=== PATIENT | male | born 1990 | race Caucasian/White ===

== ENCOUNTER 2022-12-04 15:31 | Inpatient (IN) | payer MEDICAID ==
[~2022-12-04] VITALS: Ht 167.6 cm; Wt 77.1 kg
[~2022-12-04 15:31] MED LIST: HYDR-4354 PO
[2022-12-04] MEDS ORDERED: KETOROLAC TROMETHAMINE 15 MG INJ IVP ONE (16:00)
[2022-12-04] MEDS ORDERED: IV NORMAL SALINE 1000 ML BAG IV ONE (16:00)
[2022-12-04] MEDS ORDERED: KETOROLAC TROMETHAMINE 30 MG INJ ONE (16:07)
[2022-12-04 16:16] LABS: BASOPHILS % (AUTO) 0.3 % (0.0-2.0); EOSINOPHILS # (AUTO) 0.2 K/uL (0.0-0.7); EOSINOPHILS % (AUTO) 1.2 % (0.0-7.0); HEMATOCRIT 45.3 % (36.7-47.1); HEMOGLOBIN 15.6 g/dL (12.5-16.3); LYMPHOCYTES # (AUTO) 1.5 K/uL (0.8-4.8); LYMPHOCYTES % (AUTO) 10.6 % (20.5-51.5); MEAN CORPUSCULAR HEMOGLOBIN 29.8 uug (23.8-33.4); MEAN CORPUSCULAR HGB CONC 34 g/dL (32.5-36.3); MEAN CORPUSCULAR VOLUME 86.6 fL (73.0-96.2); MONOCYTES # (AUTO) 0.9 K/uL (0.1-1.30); MONOCYTES % (AUTO) 6.3 % (0.0-11.0); NEUTROPHILS # (AUTO) 11.6 K/uL (1.8-8.9); NEUTROPHILS % (AUTO) 81.6 % (38.5-71.5); PLATELET COUNT (AUTO) 165 K/uL (152-348); RED BLOOD CELL COUNT(AUTO) 5.23 MIL/uL (4.06-5.63); RED CELL DISTRIBUTION WIDTH 13.4 % (12.1-16.2); WHITE BLOOD COUNT (AUTO) 14.2 K/uL (3.6-10.2)
[2022-12-04 16:17] LABS: DIFFERENTIAL COMMENT 1
[2022-12-04 16:31] LABS: *BILIRUBIN,URIN NEGATIVE (NEGATIVE); *BLOOD, URINE NEGATIVE (NEGATIVE); *CLARITY,URINE CLEAR (CLEAR); *COLOR,URINE YELLOW (YELLOW); *KETONES,URINE NEGATIVE (NEGATIVE); *PROTEIN,URINE NEGATIVE (NEGATIVE); *UROBILINOGEN,URINE 0.2 E.U./dl (NORMAL); LEUKOCYTE ESTERASE ,URINE NEGATIVE (NEGATIVE); NITRITE, URINE NEGATIVE (NEGATIVE); PH,URINE 8.5 (5.0-8.0); UGLUCOSE NEGATIVE (NEGATIVE)
[2022-12-04 16:39] LABS: ALBUMIN 3.4 g/dL (3.4-5.0); BILIRUBIN,DIRECT 0.1 mg/dL (0.0-0.2); BILIRUBIN,TOTAL 0.3 mg/dL (0.2-1.0); CALCIUM 8.4 mg/dL (8.5-10.1); POTASSIUM 3.4 mmol/L (3.5-5.1); TOTAL PROTEIN, SERUM 6.5 g/dL (6.4-8.2)
[2022-12-04] MEDS ORDERED: PIPERACILLIN/TAZOBACTAM/D5W 50 ML IV ONE (17:23)
[2022-12-04] MEDS ORDERED: PIPERACILLIN SODIUM/TAZOBACTAM 3.375 G in IV DEXTROSE 5% 50 ML IV ONE (17:30)
[2022-12-04] MEDS ORDERED: ONDANSETRON 4 MG/2 ML VIAL IV PRN (19:15)
[2022-12-04] MEDS ORDERED: MORPHINE SULFATE 2 MG/1 ML DISP.SYRIN IV PRN (19:15)
[2022-12-04 20:00] VITALS: BP 142/58; TEMP 98.1; O2SAT 96
[2022-12-04] MEDS: ACETAMINOPHEN 325 MG TABLET PO PRN (21:52)
[2022-12-04] MEDS: IV D5 1/2 NS 1000 ML 1,000 ML IV PRN (22:04)
[2022-12-05] VITALS: BP 114/55; TEMP 98.3; O2SAT 97
[2022-12-05] MEDS ORDERED: PIPERACILLIN SODIUM/TAZOBACTAM 3.375 G in IV DEXTROSE 5% 50 ML IV SCH ×2
[2022-12-05] MEDS ORDERED: PIPERACILLIN/TAZOBACTAM/D5W 50 ML IV ONE ×2 (01:27→04:47)
[2022-12-05] MEDS: PIPERACILLIN SODIUM/TAZOBACTAM 3.375 G in IV DEXTROSE 5% 50 ML IV SCH ×2 (01:35→06:19)
[2022-12-05 04:00] VITALS: BP 105/56; TEMP 98; O2SAT 98
[2022-12-05 07:02] LABS: BASOPHILS # (AUTO) 0.1 K/UL (0.0-0.2); BASOPHILS % (AUTO) 0.6 % (0.0-2.0); EOSINOPHILS # (AUTO) 0.2 K/uL (0.0-0.7); EOSINOPHILS % (AUTO) 2.4 % (0.0-7.0); HEMATOCRIT 42.8 % (36.7-47.1); LYMPHOCYTES # (AUTO) 1.9 K/uL (0.8-4.8); LYMPHOCYTES % (AUTO) 21.5 % (20.5-51.5); MEAN CORPUSCULAR HEMOGLOBIN 30.5 uug (23.8-33.4); MEAN CORPUSCULAR HGB CONC 35 g/dL (32.5-36.3); MONOCYTES # (AUTO) 0.7 K/uL (0.1-1.30); MONOCYTES % (AUTO) 8.4 % (0.0-11.0); NEUTROPHILS # (AUTO) 5.9 K/uL (1.8-8.9); NEUTROPHILS % (AUTO) 67.1 % (38.5-71.5); PLATELET COUNT (AUTO) 158 K/uL (152-348); RED BLOOD CELL COUNT(AUTO) 4.92 MIL/uL (4.06-5.63); RED CELL DISTRIBUTION WIDTH 13.1 % (12.1-16.2); WHITE BLOOD COUNT (AUTO) 8.8 K/uL (3.6-10.2)
[2022-12-05 07:14] LABS: CALCIUM 7.9 mg/dL (8.5-10.1); PHOSPHOROUS 3.8 mg/dL (2.5-4.9)
[2022-12-05 07:18] LABS: DIFFERENTIAL COMMENT 1
[2022-12-05 08:00] VITALS: BP 105/63; TEMP 98; O2SAT 98
[2022-12-05] MEDS: PANTOPRAZOLE SODIUM 40 MG VIAL IV SCH (08:49)
[2022-12-05] MEDS ORDERED: MORPHINE SULFATE 4 MG/1 ML DISP.SYRIN IV PRN (10:00)
[2022-12-05 11:59] VITALS: BP 120/70; TEMP 97.9; O2SAT 99
[2022-12-05] MEDS: IV D5 1/2 NS 1000 ML 1,000 ML IV PRN (12:57)
[2022-12-05] MEDS: PIPERACILLIN SODIUM/TAZOBACTAM 3.375 G in IV DEXTROSE 5% 100 ML IV SCH ×2 (13:50→21:05)
[2022-12-05 16:44] VITALS: BP 110/75; TEMP 98; O2SAT 98
[2022-12-05 20:00] VITALS: BP 116/74; TEMP 98.1; O2SAT 99
[2022-12-05] MEDS: ACETAMINOPHEN 325 MG TABLET PO PRN (21:14)
[2022-12-06 04:00] VITALS: BP 111/71; TEMP 98; O2SAT 98
[2022-12-06] MEDS: PIPERACILLIN SODIUM/TAZOBACTAM 3.375 G in IV DEXTROSE 5% 100 ML IV SCH (05:22)
[2022-12-06 08:09] VITALS: BP 110/69; TEMP 97.7; O2SAT 98
[2022-12-06] MEDS: PANTOPRAZOLE SODIUM 40 MG VIAL IV SCH (08:44)
[2022-12-06] MEDS: ACETAMINOPHEN 325 MG TABLET PO PRN (08:48)
[2022-12-06] MEDS: IV D5 1/2 NS 1000 ML 1,000 ML IV PRN (11:54)
[2022-12-06 12:00] VITALS: BP 114/69; TEMP 98.3; O2SAT 98
[2022-12-06] MEDS ORDERED: AMOX-430 PO (13:15)
[2022-12-06] MEDS ORDERED: HYDR-3972 PO (13:15)
[2022-12-06] MEDS ORDERED: ONDA4TAB11 PO (13:15)
[2022-12-07] MEDS ORDERED: PANTOPRAZOLE SODIUM 40 MG TABLET.DR PO SCH (07:00)
== END 2022-12-06 16:05 | disposition home or self-care (01) | DRG 254 ==
LOC: ER 15:31 → MEDSURG3 20:18
PROVIDERS: ADMIT Nurse Practitioner Family; ATTEND Nurse Practitioner Family
DX: K35.80 Unspecified acute appendicitis (principal); E83.51 Hypocalcemia; E87.6 Hypokalemia; F17.210 Nicotine dependence, cigarettes, uncomplicated; K43.9 Ventral hernia without obstruction or gangrene; K42.9 Umbilical hernia without obstruction or gangrene; K57.30 Diverticulosis of large intestine without perforation or abscess without bleeding; Z87.828 Personal history of other (healed) physical injury and trauma
CPT/HCPCS: 36415; 71045; 83690; 83735; 84100; 85025; 85730; 93005; A4663; C9113; G0378; J1885; J2270; J2543; J7040; J7042

== ENCOUNTER 2024-02-07 16:09 | Emergency (ER) | payer SELFPAY ==
[~2024-02-07] VITALS: Ht 167.6 cm; Wt 63.5 kg
[2024-02-07 16:09] VITALS: O2SAT 98
[~2024-02-07 16:09] MED LIST changes: +AMOX-430 PO; +HYDR-3972 PO; -HYDR-4354 PO; +ONDA4TAB11 PO
[2024-02-07] MEDS ORDERED: LIDOCAINE 1%-EPI 1:100,000 20 ML VIAL ONE (16:21)
[2024-02-07] MEDS: LIDOCAINE 1%-EPI 1:100,000 20 ML VIAL IJ ONE (16:58)
[2024-02-07] MEDS ORDERED: TDAP DIPH,PERTUSS,TET VAC/PF 0.5 ML DISP.SYRIN IM ONE (17:07)
[2024-02-07] MEDS: TDAP DIPH,PERTUSS,TET VAC/PF 0.5 ML DISP.SYRIN IM ONE (17:09)
== END 2024-02-07 17:29 | disposition home or self-care (01) ==
LOC: ER 16:09
DX: S01.112A Laceration without foreign body of left eyelid and periocular area, initial encounter (principal); Z79.899 Other long term (current) drug therapy; W01.0XXA Fall on same level from slipping, tripping and stumbling without subsequent striking against object, initial encounter; Y93.89 Activity, other specified; Y92.89 Other specified places as the place of occurrence of the external cause; Y99.8 Other external cause status
CPT/HCPCS: 12013; 90471; 90715; 99283; J3490; A4606; A4663